=== PATIENT | male | born 1940 | race Caucasian/White ===

== ENCOUNTER 2020-10-13 11:03 | Inpatient (IN) ==
[2020-10-13] MEDS ORDERED: NS 0.9% 1000 ml BAG 1,000 ML IV ONE (11:47)
[2020-10-13 12:28] LABS: ABS Eosinophils 0.2 10^3/ul (0-0.6); ABS Lymphocytes 2.3 10^3/ul (1.0-4.8); ABS Monocytes 1.1 10^3/ul (0-0.8); ABS Neutrophils 4.4 10^3/ul (1.5-7.7); Eosinophil % 2.4 %; Hematocrit 45 % (42-52); Hemoglobin 15.2 g/dL (14.0-18.0); Lymphocyte % 28.6 %; Mean Corpuscular HGB Conc 34 g/dL (31-36); Mean Corpuscular Hemoglobin 29 pg (27-31); Mean Corpuscular Volume 85 fL (80-94); Mean Platelet Volume 7.6 fL (7.4-10.4); Platelet Count 201 10^3/uL (150-450); Red Blood Count 5.31 10^6 /uL (4.18-5.48); Red Cell Distribution Width 16 % (10-15); White Blood Count 8.1 10^3/uL (3.5-10.8)
[2020-10-13 12:42] LABS: Albumin/Globulin Ratio 1.3 (1-3); BUN/Creatinine Ratio 17.8 (8-20); Calcium 10.8 mg/dL (8.6-10.3); EGFR African American 71.5 (>60); EGFR Non-African American 59.1 (>60); Potassium 4.5 mmol/L (3.5-5.0); Total Bilirubin 0.5 mg/dL (0.2-1.0)
[2020-10-13 12:43] LABS: Troponin I 0.02 ng/mL (<0.03)
[2020-10-13 13:39] LABS: Urine Appearance Cloudy; Urine Bilirubin Negative (Negative); Urine Blood Negative (Negative); Urine Color Yellow; Urine Glucose Negative (Negative); Urine Ketones Negative (Negative); Urine Nitrite Negative (Negative); Urine Protein Negative (Negative); Urine Specific Gravity 1.012 (1.010-1.030); Urine Urobilinogen Negative (Negative)
[2020-10-13 13:42] LABS: Urine Bacteria 3+ (Absent); Urine Red Blood Cell 3+(>10/hpf) (Absent); Urine White Blood Cell 3+(>20/hpf) (Absent)
[2020-10-13] MEDS ORDERED: cefTRIAXone 1 gm/50 mL NS BAG 1 GM/50 ML BAG IV ONE (14:25)
[2020-10-13] MEDS ORDERED: Ondansetron 4 mg VIAL 2 MG/ML 2 ml VIAL IV PRN (15:36)
[2020-10-13] MEDS: Nystatin SUSPENSION 100,000 UNITS/ML UDC PO SCH ×2 (18:25→20:57)
[2020-10-13] MEDS: Enoxaparin 40 MG/0.4 ML SYR SUBCUT SCH (18:25)
[2020-10-14 05:34] LABS: ABS Eosinophils 0.2 10^3/ul (0-0.6); ABS Lymphocytes 1.6 10^3/ul (1.0-4.8); ABS Monocytes 0.7 10^3/ul (0-0.8); ABS Neutrophils 3.2 10^3/ul (1.5-7.7); Eosinophil % 3.2 %; Hematocrit 45 % (42-52); Hemoglobin 15.2 g/dL (14.0-18.0); Lymphocyte % 27.7 %; Mean Corpuscular HGB Conc 34 g/dL (31-36); Mean Corpuscular Hemoglobin 29 pg (27-31); Mean Corpuscular Volume 86 fL (80-94); Mean Platelet Volume 7.8 fL (7.4-10.4); Nucleated Red Blood Cells % 0.1; Platelet Count 193 10^3/uL (150-450); Red Blood Count 5.27 10^6 /uL (4.18-5.48); Red Cell Distribution Width 16 % (10-15); White Blood Count 5.7 10^3/uL (3.5-10.8)
[2020-10-14 05:52] LABS: BUN/Creatinine Ratio 14.2 (8-20); Calcium 10.6 mg/dL (8.6-10.3); EGFR African American 65.7 (>60); EGFR Non-African American 54.3 (>60); Magnesium 2.1 mg/dL (1.9-2.7); Potassium 4.9 mmol/L (3.5-5.0)
[2020-10-14] MEDS ORDERED: Perflutren Lipid Microsphere 3 ML VIAL ONE (07:57)
[2020-10-14] MEDS: Nystatin SUSPENSION 100,000 UNITS/ML UDC PO SCH ×4 (10:30→22:50)
[2020-10-14] MEDS: Aspirin EC 81 mg TAB.EC (enteric coated) PO SCH (10:31)
[2020-10-14] MEDS: cefTRIAXone 1 gm/50 mL NS BAG 1 GM/50 ML BAG IV SCH (16:50)
[2020-10-14] MEDS: Enoxaparin 40 MG/0.4 ML SYR SUBCUT SCH (17:45)
[2020-10-14 20:14] LABS: TSH Ultra Thyroid Stim Horm 2.58 mcIU/mL (0.34-5.60)
[2020-10-14 20:25] LABS: Folate 5.86 ng/mL (>3.99)
[2020-10-15 07:52] LABS: Calcium 10.9 mg/dL (8.6-10.3)
[2020-10-15 07:58] LABS: BUN/Creatinine Ratio 16.2 (8-20); EGFR African American 63.9 (>60); EGFR Non-African American 52.9 (>60)
[2020-10-15 08:00] LABS: Potassium 5.1 mmol/L (3.5-5.0)
[2020-10-15] MEDS: Aspirin EC 81 mg TAB.EC (enteric coated) PO SCH (08:20)
[2020-10-15] MEDS: Nystatin SUSPENSION 100,000 UNITS/ML UDC PO SCH ×4 (08:20→20:11)
[2020-10-15 14:26] LABS: BUN/Creatinine Ratio 17.6 (8-20); Calcium 10.7 mg/dL (8.6-10.3); EGFR African American 66.9 (>60); EGFR Non-African American 55.3 (>60)
[2020-10-15] MEDS: cefTRIAXone 1 gm/50 mL NS BAG 1 GM/50 ML BAG IV SCH (16:10)
[2020-10-15] MEDS: Enoxaparin 40 MG/0.4 ML SYR SUBCUT SCH (17:33)
[2020-10-15 22:07] LABS: Vitamin D Total 25(OH) 25.7 ng/mL (20-50)
[2020-10-16 06:21] LABS: BUN/Creatinine Ratio 18.1 (8-20); Calcium 10.5 mg/dL (8.6-10.3); EGFR African American 56.8 (>60)
[2020-10-16 06:23] LABS: Potassium 5.2 mmol/L (3.5-5.0)
[2020-10-16] MEDS: Aspirin EC 81 mg TAB.EC (enteric coated) PO SCH (08:34)
[2020-10-16] MEDS: Nystatin SUSPENSION 100,000 UNITS/ML UDC PO SCH (08:36)
[2020-10-16] MEDS ORDERED: Sodium Polystyrene ORAL.SUSP 15 GM/60 ML BTL PO ONE (08:42)
[2020-10-16 11:15] VITALS: BP 143/78
== END 2020-10-16 11:40 | DRG 65 ==
LOC: MEDTELE 11:03 → ED 11:03 → MEDTELE 16:53
PROVIDERS: ADMIT Student in an Organized Health Care Education/Training Program; ATTEND Internal Medicine